=== PATIENT | male | born 2000 | race Caucasian/White ===

== ENCOUNTER 2024-05-29 20:06 | Emergency (ER) | payer SELFPAY ==
[2024-05-29 20:09] VITALS: BP 123/83; PULSE 114; RESP 20; TEMP 36.9; O2SAT 98; BMI 20.9
[2024-05-29 20:34] VITALS: BP 125/75; PULSE 80; RESP 20; TEMP 36.7; O2SAT 98
== END 2024-05-29 20:36 | disposition left against medical advice (07) ==
LOC: ER 21:51
PROVIDERS: Emergency Provider Emergency Medicine
DX: Z53.21 Procedure and treatment not carried out due to patient leaving prior to being seen by health care provider (principal)
CPT/HCPCS: 99211